=== PATIENT | male | born 1980 ===

== ENCOUNTER 2022-06-28 09:26 | Inpatient (IN) | payer MEDICARE, MEDICAID ==
[~2022-06-28] VITALS: Ht 182.9 cm; Wt 107.3 kg
[2022-06-28 10:52] LABS: BASOPHILS # (AUTO) 0.1 X10'3 (0-0.2); BASOPHILS % (AUTO) 0.5 % (0-1); EOSINOPHILS # (AUTO) 0.2 X10'3 (0-0.9); EOSINOPHILS % (AUTO) 1.6 % (0-6); HEMATOCRIT 36.8 % (42.0-52.0); LYMPHOCYTES # (AUTO) 1.2 X10'3 (1.1-4.8); LYMPHOCYTES % (AUTO) 9.5 % (21-51); MEAN CORPUSCULAR HEMOGLOBIN 29.7 PG (27.0-31.0); MEAN CORPUSCULAR HGB CONC 32.5 g/dL (33.0-36.5); MEAN CORPUSCULAR VOLUME 91.4 FL (78-98); MEAN PLATELET VOLUME 8.4 FL (7.4-10.4); MONOCYTES # (AUTO) 0.5 X10'3 (0-0.9); NEUTROPHILS # (AUTO) 10.4 X10'3 (1.8-7.7); NEUTROPHILS % (AUTO) 84.4 % (42-75); PLATELET COUNT 367 X10'3 (140-440); RED BLOOD COUNT 4.02 X10'6 (4.70-6.10); RED CELL DISTRIBUTION WIDTH 16.4 % (11.5-14.5); WHITE BLOOD COUNT 12.4 X10'3 (4.5-11.0)
[2022-06-28 11:00] LABS: ALANINE AMINOTRANSFERASE 21 U/L (12-78); ALBUMIN 3.9 G/DL (3.4-5.0); ALBUMIN/GLOBULIN RATIO 0.8 (1.1-1.5); ALKALINE PHOSPHATASE 130 IU/L (46-116); ANION GAP 13 (8-16); ASPARTATE AMINO TRANSFERASE 15 U/L (10-37); BILIRUBIN,TOTAL 0.5 MG/DL (0.1-1.0); BLOOD UREA NITROGEN 46 MG/DL (7-18); CALCIUM 9.3 MG/DL (8.5-10.1); CHLORIDE 99 MMOL/L (99-107); GLUCOSE 279 MG/DL (70-104); POTASSIUM 4.5 MMOL/L (3.5-5.1); SODIUM 139 MMOL/L (135-145); TOTAL CARBON DIOXIDE 27.4 MMOL/L (24-32); TOTAL PROTEIN 8.6 G/DL (6.4-8.2); eGFR 6 ML/MIN
[2022-06-28 11:13] LABS: BUN/CREATININE RATIO 4.8 (5.4-32.0); CREATININE 9.64 MG/DL (0.60-1.10)
[2022-06-28] MEDS ORDERED: iohexol 350MG/ML 100ml bottle IV ONE (11:15)
[2022-06-28] MEDS ORDERED: ondansetron/PF 4mg/2ml inj IV ONE (11:25)
[2022-06-28] MEDS ORDERED: morphine 4 MG/ML inj SYRINge IV ONE (11:25)
[2022-06-28] MEDS ORDERED: PERFLUTREN PROTEIN-A MICROSPHR (Optison) 0.22 MG/ML 3ML VIAL IV ONE (13:00)
--- NOTE | 2022-06-28 13:05 | NUR ---
DR AL AT BEDSIDE.
--- NOTE | 2022-06-28 13:24 | NUR ---
SPOKE TO [facility] THREAD REELER FOR ROOM ASSISGNMENT FOR THE PT NEEDS THE DIALYSIS , PER [facility] NO ROOM AVAILABLE YET ,MADE CHARGE NURSE DAVION AWARE AND ALSO DR AL. PER LET THE DIALYSIS NURSE KNOW.
[2022-06-28] MEDS ORDERED: magnesium 2GM in 50ml NS 50 ML IV PRN (13:25)
[2022-06-28] MEDS ORDERED: DEXTROSE 15 GM of carb/4 tabs (each vial/BOTTLE has 4 tablets) PO PRN ×2 (13:25)
[2022-06-28] MEDS ORDERED: glucagon, human recombinant 1mg kit SUBCUT PRN (13:25)
[2022-06-28] MEDS ORDERED: albuterol 2.5 MG/3 ML nebule NEB PRN (13:25)
[2022-06-28] MEDS ORDERED: dextrose 50%-water 50ml dispensing syringe IV PRN ×2 (13:25)
[2022-06-28] MEDS ORDERED: ipratropium/albuterol 3ml nebule NEB PRN (13:25)
[2022-06-28] MEDS ORDERED: potassium CL 10mEq/100ml bag 100 ML IV PRN (13:25)
[2022-06-28] MEDS ORDERED: ondansetron/PF 4mg/2ml inj IV PRN (13:25)
[2022-06-28] MEDS ORDERED: heparin 1,000unit/ml 10ml vial 10 ML IV ONE (13:25)
[2022-06-28] MEDS ORDERED: MESSAGE TO PHARMACY PO ONE (13:25)
[2022-06-28] MEDS ORDERED: magnesium 4gm in 100ml NS 100 ML IV PRN (13:25)
[2022-06-28] MEDS ORDERED: heparin 1,000 units/ml 10ml inj IV ONE (13:25)
[2022-06-28] MEDS ORDERED: POTASSIUM BICARB 20meq eff tab 20 MEQ TABLET.EFF PO PRN ×2 (13:25)
[2022-06-28] MEDS ORDERED: acetaminophen 325mg tablet PO PRN (13:25)
[2022-06-28] MEDS ORDERED: heparin 1,000 units/ml 10ml inj HE ONE ×2 (13:30→16:05)
--- NOTE | 2022-06-28 14:01 | NUR ---
RT AT BEDSIDE.
[2022-06-28 14:30] LABS: ABG BASE EXCESS 4.1 mmol/L (-2.0-2.0); ABG HCO3 25.5 mmol/L (22.0-26.0); ABG OXYGEN SATURATION 85.2 % (94-97); ABG PCO2 (T) 28.5 mmHg (35.0-48.0); ABG PO2 (T) 47.1 mmHg (75.0-100.0); ALLEN'S TEST POSITIVE; FCOHb 0.1 % (0.0-3.9); FLOW 6 L/min; FMetHb 0.1 % (0.0-1.5); PATIENT TEMPERATURE 36.7; TOTAL HEMOGLOBIN 12.9 G/dl (14.0-18.0)
[2022-06-28 14:35] LABS: HEMOGLOBIN A1C 9.4 % (4.5-6.2)
[2022-06-28 16:45] VITALS: BP 190/100
[2022-06-28 18:00] VITALS: BP 147/86
--- NOTE | 2022-06-28 18:30 | NUR ---
Problems reprioritized. Patient report given, questions answered & plan of care reviewed with ALEXANDRA Urias.
[2022-06-28] MEDS ORDERED: DILT-36 PO (19:59)
[2022-06-28] MEDS ORDERED: SEVE800T7 PO (19:59)
[2022-06-28] MEDS ORDERED: LEVO100T9 PO (19:59)
[2022-06-28] MEDS ORDERED: METO5TAB98 PO (19:59)
[2022-06-28] MEDS ORDERED: METO100T14 PO (19:59)
[2022-06-28] MEDS ORDERED: LISI40TA13 PO (19:59)
[2022-06-28] MEDS ORDERED: ROSU10TA28 PO (19:59)
[2022-06-28] MEDS ORDERED: HYDR100T27 PO (19:59)
[2022-06-28] MEDS ORDERED: SODI10PO PO (19:59)
[2022-06-28] MEDS ORDERED: APIX5TAB3 PO (19:59)
[2022-06-28] MEDS: K and/or MAG REPLACEMENT MC SCH (20:00)
[2022-06-28] MEDS: insulin glargine (Lantus) pen - multi-dose SQ SCH (21:00)
[2022-06-28 22:00] VITALS: BP 131/83
[2022-06-28] MEDS: docusate sod 100mg capsule PO SCH (22:28)
[2022-06-28] MEDS: heparin, porcine 5000 units/ml vial SQ SCH (22:28)
[2022-06-29] MEDS: methylPREDNISolone sod succ 125mg/2ml vial IV SCH ×3 (00:16→17:46)
[2022-06-29 02:00] VITALS: BP 128/85
[2022-06-29 07:00] VITALS: BP 135/91
[2022-06-29] MEDS: K and/or MAG REPLACEMENT MC SCH ×2 (08:00→20:00)
[2022-06-29 08:13] LABS: BASOPHILS % (AUTO) 0.1 % (0-1); EOSINOPHILS % (AUTO) 0 % (0-6); HEMATOCRIT 37.4 % (42.0-52.0); HEMOGLOBIN 12.4 g/dl (14.0-17.9); LYMPHOCYTES # (AUTO) 0.6 X10'3 (1.1-4.8); LYMPHOCYTES % (AUTO) 4.5 % (21-51); MEAN CORPUSCULAR HEMOGLOBIN 29.5 PG (27.0-31.0); MEAN CORPUSCULAR HGB CONC 33.1 g/dL (33.0-36.5); MEAN CORPUSCULAR VOLUME 89.3 FL (78-98); MEAN PLATELET VOLUME 8.8 FL (7.4-10.4); MONOCYTES # (AUTO) 0.1 X10'3 (0-0.9); MONOCYTES % (AUTO) 0.8 % (2-12); NEUTROPHILS # (AUTO) 12.5 X10'3 (1.8-7.7); NEUTROPHILS % (AUTO) 94.6 % (42-75); PLATELET COUNT 392 X10'3 (140-440); RED BLOOD COUNT 4.19 X10'6 (4.70-6.10); RED CELL DISTRIBUTION WIDTH 16.7 % (11.5-14.5); WHITE BLOOD COUNT 13.2 X10'3 (4.5-11.0)
[2022-06-29] MEDS: heparin, porcine 5000 units/ml vial SQ SCH (08:22)
[2022-06-29] MEDS: docusate sod 100mg capsule PO SCH ×2 (08:22→21:25)
[2022-06-29 08:37] LABS: ALANINE AMINOTRANSFERASE 21 U/L (12-78); ALBUMIN 3.8 G/DL (3.4-5.0); ALBUMIN/GLOBULIN RATIO 0.7 (1.1-1.5); ALKALINE PHOSPHATASE 135 IU/L (46-116); ANION GAP 14 (8-16); ASPARTATE AMINO TRANSFERASE 15 U/L (10-37); BILIRUBIN,TOTAL 0.7 MG/DL (0.1-1.0); BLOOD UREA NITROGEN 31 MG/DL (7-18); BUN/CREATININE RATIO 4.5 (5.4-32.0); CALCIUM 9.4 MG/DL (8.5-10.1); CHLORIDE 95 MMOL/L (99-107); CREATININE 6.95 MG/DL (0.60-1.10); MAGNESIUM 2.5 MG/DL (1.5-2.4); PHOSPHORUS 2.9 MG/DL (2.3-4.5); SODIUM 133 MMOL/L (135-145); TOTAL CARBON DIOXIDE 24.3 MMOL/L (24-32); TOTAL PROTEIN 8.9 G/DL (6.4-8.2); eGFR 9 ML/MIN
[2022-06-29 08:43] LABS: GLUCOSE 496 MG/DL (70-104); POTASSIUM 6.4 MMOL/L (3.5-5.1)
--- NOTE | 2022-06-29 08:55 | NUR ---
PT had critical labs. notified. "RM 3019: PT has critical labs. BG was 496 via lab; 486 via POCT. K+ was 6.4. Pt received HD over NOC; 5L out. Thanks Gabrielle. "
--- NOTE | 2022-06-29 09:37 | NUR ---
Diabetes consult: Pt w/ hx of DM A1c 9.4 per EMR. Pt declined verbal ed though accepted written DM ed w/ RD contact info. Addendum: 06/29/22 at [address] Amended: Links added.
[2022-06-29] MEDS ORDERED: pneumococcal 23-VAL P-sac vacc 25 mcg/0.5ml vial IMVAC ONE (10:00)
[2022-06-29] MEDS: insulin Lispro (HumaLOG) vial - multi-dose SQ SCH ×3 (11:55→21:53)
[2022-06-29] MEDS: SODIUM ZIRCONIUM CYCLOSILICATE 10 GM POWD.PACK PO SCH ×3 (11:56→21:26)
--- NOTE | 2022-06-29 13:15 | NUR ---
Messaged regarding critical BG POCT: 547 "RM 3019A: PT BG POCT 547, post initial treatment. Pt still aox4, awake alert and denies s/s. "
--- NOTE | 2022-06-29 14:33 | NUR ---
PAGER ID: [phone] MESSAGE: [email or web address] , EKG ON 3019 SHOWING ACUTE TN, C AN YOU COME LOOK AT EKG OR I CAN BRING TO YOU.
[2022-06-29] MEDS ORDERED: PERFLUTREN PROTEIN-A MICROSPHR (Optison) 0.22 MG/ML 3ML VIAL IV ONE (14:45)
[2022-06-29 14:52] LABS: ANION GAP 16 (8-16); BLOOD UREA NITROGEN 38 MG/DL (7-18); BUN/CREATININE RATIO 4.8 (5.4-32.0); CALCIUM 10.1 MG/DL (8.5-10.1); CHLORIDE 88 MMOL/L (99-107); CREATININE 7.95 MG/DL (0.60-1.10); POTASSIUM 5.4 MMOL/L (3.5-5.1); SODIUM 127 MMOL/L (135-145); TOTAL CARBON DIOXIDE 22.9 MMOL/L (24-32); eGFR 8 ML/MIN
[2022-06-29 14:54] LABS: GLUCOSE 546 MG/DL (70-104)
[2022-06-29] MEDS: sevelamer carbonate 800mg tablet PO SCH (17:45)
[2022-06-29 18:00] VITALS: BP 132/87
--- NOTE | 2022-06-29 19:57 | NUR ---
Pt aox4, vss on 8L HiFlo NC down from 10L. pt SL, on 1500mL fluid restriction with dry trays. Solumedrol for lung function with breath treatments. BG at critical levels 486am, 547noon, 318dinner. All treated per insulin protocol. Pt remains aox4, denies numnbess, tingling, lightheadedness. ECHO and EKG done for c/o ongoing chest pain/chest pressure while laying flat. Pt given IS and instruction on use for additional pulmonary function hygiene. Critical K level at 6.4 in am. New medications ordered by Dr. Mary; and K+ down to 5.4. continue powder drink for potassium levels and recheck in am. All needs met in real time. Pt on Fluid restriction of 1.5L up from 1L.
[2022-06-29] MEDS: atorvastatin 20mg tablet PO SCH (21:24)
[2022-06-29] MEDS: apixaban 5mg tablet PO SCH (21:25)
[2022-06-29] MEDS: metoprolol tartrate 50mg tablet PO SCH (21:26)
[2022-06-29] MEDS: insulin glargine (Lantus) pen - multi-dose SQ SCH (21:54)
[2022-06-29 22:00] VITALS: BP 127/79
[2022-06-30] MEDS: methylPREDNISolone sod succ 125mg/2ml vial IV SCH ×3 (01:27→23:18)
[2022-06-30 02:00] VITALS: BP 131/84
--- NOTE | 2022-06-30 04:25 | NUR ---
RT called RN to bedside, pt's O2 low 60's% and pt was refusing RT reapply nasal cannula. RT gave education, RN gave education. Pt reapplied nasal cannula. At 15L hi cheri wall O2 pt was satting max 85%. Pt refused high flow rate with more L's and wanted Liters lowered to 12. Pt placed on CHIN STRAP CUTTER and monitored. O2 back up to 90's after about 20 minutes. 15 minutes later CHIN STRAP CUTTER showing O2 at 75%, pt refused RN turning O2 up higher than 12L, saying it hurts. Oxy mask, and humidified canula offered, pt refused. Extensive education given about lack of perfusion with oxygen saturation below 90% and pt said, "you are all thinking too medically here, I let my oxygen stay at 70% at home, you cant make me wear more oxygen." Further education provided and pt was reminded of medical roles of staff in the hospital. RN also asked if pt had filled water cup from sink despite fluid restriction, pt unable to recall but "thinks this is water from before" Education about fluid restriction reinforced. Pt noncompliant with MD orders and protocols.
[2022-06-30 06:00] VITALS: BP 165/97
[2022-06-30 06:29] LABS: BASOPHILS % (AUTO) 0.1 % (0-1); EOSINOPHILS % (AUTO) 0 % (0-6); HEMATOCRIT 38.1 % (42.0-52.0); HEMOGLOBIN 12.5 g/dl (14.0-17.9); LYMPHOCYTES # (AUTO) 0.7 X10'3 (1.1-4.8); LYMPHOCYTES % (AUTO) 3.7 % (21-51); MEAN CORPUSCULAR HEMOGLOBIN 29.2 PG (27.0-31.0); MEAN CORPUSCULAR HGB CONC 32.8 g/dL (33.0-36.5); MEAN PLATELET VOLUME 8.5 FL (7.4-10.4); MONOCYTES # (AUTO) 0.2 X10'3 (0-0.9); MONOCYTES % (AUTO) 0.9 % (2-12); NEUTROPHILS # (AUTO) 19.2 X10'3 (1.8-7.7); NEUTROPHILS % (AUTO) 95.3 % (42-75); PLATELET COUNT 411 X10'3 (140-440); RED BLOOD COUNT 4.29 X10'6 (4.70-6.10); RED CELL DISTRIBUTION WIDTH 16.2 % (11.5-14.5); WHITE BLOOD COUNT 20.1 X10'3 (4.5-11.0)
[2022-06-30 06:39] LABS: ALANINE AMINOTRANSFERASE 17 U/L (12-78); ALBUMIN 3.7 G/DL (3.4-5.0); ALBUMIN/GLOBULIN RATIO 0.8 (1.1-1.5); ALKALINE PHOSPHATASE 122 IU/L (46-116); ANION GAP 14 (8-16); ASPARTATE AMINO TRANSFERASE 8 U/L (10-37); BILIRUBIN,TOTAL 0.6 MG/DL (0.1-1.0); BLOOD UREA NITROGEN 61 MG/DL (7-18); BUN/CREATININE RATIO 6.5 (5.4-32.0); CALCIUM 9.8 MG/DL (8.5-10.1); CHLORIDE 91 MMOL/L (99-107); CREATININE 9.39 MG/DL (0.60-1.10); GLUCOSE 418 MG/DL (70-104); MAGNESIUM 2.6 MG/DL (1.5-2.4); PHOSPHORUS 4.9 MG/DL (2.3-4.5); POTASSIUM 5.8 MMOL/L (3.5-5.1); SODIUM 132 MMOL/L (135-145); TOTAL CARBON DIOXIDE 26.8 MMOL/L (24-32); TOTAL PROTEIN 8.4 G/DL (6.4-8.2); eGFR 6 ML/MIN
[2022-06-30] MEDS: K and/or MAG REPLACEMENT MC SCH ×2 (08:00→20:49)
[2022-06-30] MEDS: insulin Lispro (HumaLOG) vial - multi-dose SQ SCH ×2 (10:37→14:35)
[2022-06-30] MEDS: sevelamer carbonate 800mg tablet PO SCH ×2 (10:40→17:30)
[2022-06-30] MEDS: docusate sod 100mg capsule PO SCH ×2 (10:40→20:41)
[2022-06-30] MEDS: metoprolol tartrate 50mg tablet PO SCH ×2 (10:41→20:00)
[2022-06-30] MEDS: atorvastatin 20mg tablet PO SCH ×2 (10:41→20:41)
[2022-06-30] MEDS: levoTHYROXINE 100mcg tablet PO SCH (10:41)
[2022-06-30] MEDS: SODIUM ZIRCONIUM CYCLOSILICATE 10 GM POWD.PACK PO SCH ×3 (10:42→20:44)
[2022-06-30] MEDS: CefTRIAXone/D5W-Rocephin 1gm 50 ML IV SCH (10:42)
[2022-06-30] MEDS: apixaban 5mg tablet PO SCH ×2 (10:42→20:41)
[2022-06-30] MEDS ORDERED: LIDOcaine 1% (10mg/ml) 2ml vial SQ ONE (11:15)
[2022-06-30] MEDS ORDERED: normal saline 1000ml 250 ML IV PRN (11:15)
[2022-06-30] MEDS ORDERED: EPOETIN ALFA-EPBX 20,000 UNIT/ML 1 ML MDV IV ONE (11:15)
[2022-06-30] MEDS ORDERED: heparin 1,000 units/ml 10ml inj IV ONE (11:15)
[2022-06-30] MEDS ORDERED: heparin 1,000unit/ml 10ml vial 10 ML IV ONE (11:40)
[2022-06-30] MEDS ORDERED: heparin 1,000 units/ml 10ml inj HE ONE ×2 (11:45)
[2022-06-30 13:00] VITALS: BP 147/91
[2022-06-30 18:00] VITALS: BP 99/69
[2022-06-30] MEDS: insulin glargine (Lantus) pen - multi-dose SQ SCH (20:40)
[2022-06-30 22:00] VITALS: BP 126/71
[2022-07-01 02:00] VITALS: BP 130/67
[2022-07-01 06:29] LABS: BASOPHILS % (AUTO) 0 % (0-1); EOSINOPHILS % (AUTO) 0 % (0-6); HEMATOCRIT 43.7 % (42.0-52.0); HEMOGLOBIN 14.3 g/dl (14.0-17.9); LYMPHOCYTES % (AUTO) 4.6 % (21-51); MEAN CORPUSCULAR HEMOGLOBIN 29.6 PG (27.0-31.0); MEAN CORPUSCULAR HGB CONC 32.6 g/dL (33.0-36.5); MEAN CORPUSCULAR VOLUME 90.9 FL (78-98); MEAN PLATELET VOLUME 8.7 FL (7.4-10.4); MONOCYTES # (AUTO) 0.3 X10'3 (0-0.9); MONOCYTES % (AUTO) 1.6 % (2-12); NEUTROPHILS # (AUTO) 19.9 X10'3 (1.8-7.7); NEUTROPHILS % (AUTO) 93.8 % (42-75); PLATELET COUNT 413 X10'3 (140-440); RED BLOOD COUNT 4.81 X10'6 (4.70-6.10); RED CELL DISTRIBUTION WIDTH 16.5 % (11.5-14.5); WHITE BLOOD COUNT 21.2 X10'3 (4.5-11.0)
[2022-07-01 06:45] LABS: ALANINE AMINOTRANSFERASE 13 U/L (12-78); ALBUMIN 4.1 G/DL (3.4-5.0); ALBUMIN/GLOBULIN RATIO 0.8 (1.1-1.5); ALKALINE PHOSPHATASE 133 IU/L (46-116); ANION GAP 15 (8-16); ASPARTATE AMINO TRANSFERASE 10 U/L (10-37); BILIRUBIN,TOTAL 0.5 MG/DL (0.1-1.0); BLOOD UREA NITROGEN 56 MG/DL (7-18); BUN/CREATININE RATIO 7.1 (5.4-32.0); CALCIUM 9.5 MG/DL (8.5-10.1); CHLORIDE 93 MMOL/L (99-107); CREATININE 7.85 MG/DL (0.60-1.10); GLUCOSE 367 MG/DL (70-104); MAGNESIUM 2.9 MG/DL (1.5-2.4); PHOSPHORUS 7.1 MG/DL (2.3-4.5); POTASSIUM 5.1 MMOL/L (3.5-5.1); SODIUM 131 MMOL/L (135-145); TOTAL PROTEIN 9.5 G/DL (6.4-8.2); eGFR 8 ML/MIN
[2022-07-01] MEDS: K and/or MAG REPLACEMENT MC SCH ×2 (08:00→20:20)
[2022-07-01] MEDS: insulin Lispro (HumaLOG) vial - multi-dose SQ SCH ×2 (10:03→14:00)
[2022-07-01] MEDS: apixaban 5mg tablet PO SCH (10:07)
[2022-07-01] MEDS: atorvastatin 20mg tablet PO SCH (10:07)
[2022-07-01] MEDS: docusate sod 100mg capsule PO SCH ×2 (10:07→20:20)
[2022-07-01] MEDS: levoTHYROXINE 100mcg tablet PO SCH (10:07)
[2022-07-01] MEDS: metoprolol tartrate 50mg tablet PO SCH ×2 (10:08→20:19)
[2022-07-01] MEDS: sevelamer carbonate 800mg tablet PO SCH ×2 (10:09→18:20)
[2022-07-01] MEDS: methylPREDNISolone sod succ 125mg/2ml vial IV SCH ×3 (10:52→23:04)
[2022-07-01] MEDS: CefTRIAXone/D5W-Rocephin 1gm 50 ML IV SCH (10:53)
[2022-07-01 12:00] VITALS: BP 151/105
[2022-07-01 15:53] LABS: HBSAG SCREEN Negative (Negative)
[2022-07-01] MEDS ORDERED: heparin 10,000 units/1 ML INJ IV ONE (17:55)
[2022-07-01] MEDS ORDERED: heparin 10,000 units/1 ML INJ IV PRN (17:55)
[2022-07-01] MEDS ORDERED: HEPARIN SOD,PORK IN 0.45% NACL 250 ML IV SCH (17:55)
[2022-07-01 18:00] VITALS: BP 149/95
--- NOTE | 2022-07-01 18:36 | NUR ---
Problems reprioritized. Patient report given, questions answered & plan of care reviewed with Adonay MORRIS, patient stable at transfer of care.
[2022-07-01] MEDS: insulin glargine (Lantus) pen - multi-dose SQ SCH (21:01)
[2022-07-01 22:00] VITALS: BP 155/93
[2022-07-02 02:00] VITALS: BP 145/90
[2022-07-02 06:00] VITALS: BP 119/71
--- NOTE | 2022-07-02 06:17 | NUR ---
Patient in room PCU 3019. I have received report from Adonay MORRIS and had the opportunity to ask questions and assume patient care.
[2022-07-02 07:43] LABS: BASOPHILS % (AUTO) 0.1 % (0-1); EOSINOPHILS % (AUTO) 0 % (0-6); HEMATOCRIT 41.8 % (42.0-52.0); HEMOGLOBIN 13.8 g/dl (14.0-17.9); LYMPHOCYTES # (AUTO) 0.9 X10'3 (1.1-4.8); LYMPHOCYTES % (AUTO) 4.4 % (21-51); MEAN CORPUSCULAR HEMOGLOBIN 29.4 PG (27.0-31.0); MEAN CORPUSCULAR VOLUME 89.1 FL (78-98); MEAN PLATELET VOLUME 8.8 FL (7.4-10.4); MONOCYTES # (AUTO) 0.3 X10'3 (0-0.9); MONOCYTES % (AUTO) 1.5 % (2-12); NEUTROPHILS # (AUTO) 19.4 X10'3 (1.8-7.7); PLATELET COUNT 441 X10'3 (140-440); RED CELL DISTRIBUTION WIDTH 16.5 % (11.5-14.5); WHITE BLOOD COUNT 20.7 X10'3 (4.5-11.0)
[2022-07-02] MEDS: metoprolol tartrate 50mg tablet PO SCH ×2 (07:57→19:45)
[2022-07-02] MEDS: levoTHYROXINE 100mcg tablet PO SCH (07:58)
[2022-07-02] MEDS: sevelamer carbonate 800mg tablet PO SCH ×2 (07:58→17:30)
[2022-07-02] MEDS ORDERED: heparin 1,000 units/ml 10ml inj HE ONE ×2 (08:00)
[2022-07-02] MEDS ORDERED: heparin 1,000unit/ml 10ml vial 10 ML IV ONE (08:00)
[2022-07-02] MEDS: docusate sod 100mg capsule PO SCH ×2 (08:00→19:45)
[2022-07-02] MEDS: K and/or MAG REPLACEMENT MC SCH ×2 (08:00→19:45)
[2022-07-02] MEDS ORDERED: normal saline 1000ml 250 ML IV PRN (08:00)
[2022-07-02] MEDS: methylPREDNISolone sod succ 125mg/2ml vial IV SCH ×2 (08:02→16:02)
[2022-07-02 08:17] LABS: ALANINE AMINOTRANSFERASE 12 U/L (12-78); ALBUMIN 3.7 G/DL (3.4-5.0); ALBUMIN/GLOBULIN RATIO 0.8 (1.1-1.5); ALKALINE PHOSPHATASE 122 IU/L (46-116); ANION GAP 27 (8-16); ASPARTATE AMINO TRANSFERASE 9 U/L (10-37); BILIRUBIN,TOTAL 0.5 MG/DL (0.1-1.0); BLOOD UREA NITROGEN 111 MG/DL (7-18); BUN/CREATININE RATIO 10.1 (5.4-32.0); CALCIUM 8.5 MG/DL (8.5-10.1); CHLORIDE 86 MMOL/L (99-107); MAGNESIUM 2.6 MG/DL (1.5-2.4); POTASSIUM 5.1 MMOL/L (3.5-5.1); SODIUM 128 MMOL/L (135-145); TOTAL CARBON DIOXIDE 15.4 MMOL/L (24-32); TOTAL PROTEIN 8.5 G/DL (6.4-8.2); eGFR 5 ML/MIN
[2022-07-02 08:20] LABS: GLUCOSE 457 MG/DL (70-104)
[2022-07-02 08:21] LABS: PHOSPHORUS 9.5 MG/DL (2.3-4.5)
--- NOTE | 2022-07-02 09:29 | NUR ---
Initial: Pt admitted w/ pulmonary HTN, acute respiratory failure, and ESRD on HD per EMR. Currently on Carb control/Renal diet w/ 800ml fluid restriction, eating mostly 100% of meals which meets approximately 90% of est energy needs and 100% of est protein needs. Pt continues on HD, last treatment 06/30 w/ 4.5L out per documentation. LBM 06/28 receiving routine bowel care. No nutrition intervention implemented at this time, will continue to monitor. Recs: 1. Continue Renal/Carb control diet w/ 800mL fluid restriction per MD 2. Routine bowel care 3. Scaled wts w/ HD Addendum: 07/02/22 at [address] Amended: Links added.
[2022-07-02] MEDS: insulin Lispro (HumaLOG) vial - multi-dose SQ SCH ×2 (10:03→14:43)
[2022-07-02 16:14] VITALS: BP 120/80
[2022-07-02 18:00] VITALS: BP 116/76
--- NOTE | 2022-07-02 18:51 | NUR ---
Problems reprioritized. Patient report given, questions answered & plan of care reviewed with Valerie MORRIS, patient stable at transfer of care.
[2022-07-02] MEDS: apixaban 5mg tablet PO SCH (19:44)
[2022-07-02] MEDS: insulin glargine (Lantus) pen - multi-dose SQ SCH (20:06)
[2022-07-02] MEDS: atorvastatin 20mg tablet PO SCH (20:08)
[2022-07-02 21:21] VITALS: BP 130/83
[2022-07-03] MEDS: methylPREDNISolone sod succ 125mg/2ml vial IV SCH ×3 (00:23→17:47)
[2022-07-03 01:42] VITALS: BP 145/91
--- NOTE | 2022-07-03 05:51 | NUR ---
Pt refusing AM lab draw despite RN education on importance of understanding lab values as it relates to pt plan of care. Will attempt to draw labs again in 1-2 hrs.
[2022-07-03 06:00] VITALS: BP 130/75
[2022-07-03] MEDS: K and/or MAG REPLACEMENT MC SCH ×2 (08:00→19:10)
[2022-07-03] MEDS: docusate sod 100mg capsule PO SCH ×2 (08:00→19:51)
[2022-07-03] MEDS: insulin Lispro (HumaLOG) vial - multi-dose SQ SCH ×3 (10:27→19:47)
[2022-07-03] MEDS: apixaban 5mg tablet PO SCH ×2 (10:29→19:50)
[2022-07-03] MEDS: atorvastatin 20mg tablet PO SCH (10:29)
[2022-07-03] MEDS: sevelamer carbonate 800mg tablet PO SCH ×2 (10:29→17:47)
[2022-07-03] MEDS: levoTHYROXINE 100mcg tablet PO SCH (10:30)
[2022-07-03] MEDS: metoprolol tartrate 50mg tablet PO SCH ×2 (10:31→19:50)
[2022-07-03 11:00] VITALS: BP 127/84
[2022-07-03 15:00] VITALS: BP 128/88
[2022-07-03 15:51] LABS: BASOPHILS % (AUTO) 0 % (0-1); EOSINOPHILS % (AUTO) 0 % (0-6); HEMATOCRIT 48.2 % (42.0-52.0); HEMOGLOBIN 15.9 g/dl (14.0-17.9); LYMPHOCYTES % (AUTO) 4.3 % (21-51); MEAN CORPUSCULAR HEMOGLOBIN 29.5 PG (27.0-31.0); MEAN CORPUSCULAR HGB CONC 33.1 g/dL (33.0-36.5); MEAN PLATELET VOLUME 8.8 FL (7.4-10.4); MONOCYTES # (AUTO) 1.1 X10'3 (0-0.9); MONOCYTES % (AUTO) 4.5 % (2-12); NEUTROPHILS # (AUTO) 22.1 X10'3 (1.8-7.7); NEUTROPHILS % (AUTO) 91.2 % (42-75); PLATELET COUNT 507 X10'3 (140-440); RED BLOOD COUNT 5.41 X10'6 (4.70-6.10); RED CELL DISTRIBUTION WIDTH 16.4 % (11.5-14.5); WHITE BLOOD COUNT 24.3 X10'3 (4.5-11.0)
[2022-07-03 16:01] LABS: ALANINE AMINOTRANSFERASE 16 U/L (12-78); ALBUMIN/GLOBULIN RATIO 0.8 (1.1-1.5); ALKALINE PHOSPHATASE 123 IU/L (46-116); ANION GAP 24 (8-16); ASPARTATE AMINO TRANSFERASE 7 U/L (10-37); BILIRUBIN,TOTAL 0.6 MG/DL (0.1-1.0); BLOOD UREA NITROGEN 104 MG/DL (7-18); BUN/CREATININE RATIO 10.3 (5.4-32.0); CALCIUM 9.1 MG/DL (8.5-10.1); CHLORIDE 89 MMOL/L (99-107); CREATININE 10.05 MG/DL (0.60-1.10); GLUCOSE 172 MG/DL (70-104); POTASSIUM 4.8 MMOL/L (3.5-5.1); SODIUM 133 MMOL/L (135-145); TOTAL CARBON DIOXIDE 20.1 MMOL/L (24-32); TOTAL PROTEIN 9.2 G/DL (6.4-8.2); eGFR 6 ML/MIN
[2022-07-03 16:03] LABS: PHOSPHORUS 9.3 MG/DL (2.3-4.5)
[2022-07-03 18:00] VITALS: BP 123/79
--- NOTE | 2022-07-03 18:32 | NUR ---
Problems reprioritized. Patient report given, questions answered & plan of care reviewed with Prudence RN, patient stable at transfer of care.
--- NOTE | 2022-07-03 19:00 | NUR ---
Patient in room PCU 3019. I have received report from DANIEL MORRIS and had the opportunity to ask questions and assume patient care.
[2022-07-03] MEDS: insulin glargine (Lantus) pen - multi-dose SQ SCH (21:52)
[2022-07-03 22:00] VITALS: BP 115/67
[2022-07-03] MEDS ORDERED: HYDROcodone/acetaminophen 10/325mg tab PO ONE (22:35)
[2022-07-04] MEDS: methylPREDNISolone sod succ 125mg/2ml vial IV SCH ×3 (00:43→16:24)
[2022-07-04 02:50] VITALS: BP 138/76
[2022-07-04 06:00] VITALS: BP 152/83
--- NOTE | 2022-07-04 06:33 | NUR ---
Problems reprioritized. Patient report given, questions answered & plan of care reviewed with LION MORRIS.
[2022-07-04] MEDS ORDERED: normal saline 1000ml 250 ML IV PRN (07:10)
[2022-07-04] MEDS ORDERED: heparin 1,000unit/ml 10ml vial 10 ML IV ONE (07:10)
[2022-07-04] MEDS ORDERED: heparin 1,000 units/ml 10ml inj HE ONE ×2 (07:15)
[2022-07-04] MEDS: docusate sod 100mg capsule PO SCH ×2 (08:00→19:53)
[2022-07-04] MEDS: K and/or MAG REPLACEMENT MC SCH ×2 (08:00→20:11)
[2022-07-04] MEDS: apixaban 5mg tablet PO SCH ×2 (08:19→19:52)
[2022-07-04] MEDS: levoTHYROXINE 100mcg tablet PO SCH (08:19)
[2022-07-04] MEDS: metoprolol tartrate 50mg tablet PO SCH ×2 (08:20→19:53)
[2022-07-04] MEDS: sevelamer carbonate 800mg tablet PO SCH ×2 (08:21→17:59)
[2022-07-04] MEDS: insulin Lispro (HumaLOG) vial - multi-dose SQ SCH ×2 (10:42→19:50)
[2022-07-04] MEDS ORDERED: HYDROcodone/acetaminophen 5mg/325mg tablet PO ONE (12:16)
[2022-07-04 14:15] VITALS: BP 129/76
[2022-07-04 14:26] LABS: BASOPHILS % (AUTO) 0.2 % (0-1); EOSINOPHILS % (AUTO) 0 % (0-6); HEMATOCRIT 49.4 % (42.0-52.0); HEMOGLOBIN 16.7 g/dl (14.0-17.9); LYMPHOCYTES # (AUTO) 0.9 X10'3 (1.1-4.8); LYMPHOCYTES % (AUTO) 3.9 % (21-51); MEAN CORPUSCULAR HEMOGLOBIN 29.6 PG (27.0-31.0); MEAN CORPUSCULAR HGB CONC 33.9 g/dL (33.0-36.5); MEAN CORPUSCULAR VOLUME 87.6 FL (78-98); MEAN PLATELET VOLUME 8.8 FL (7.4-10.4); MONOCYTES # (AUTO) 0.4 X10'3 (0-0.9); MONOCYTES % (AUTO) 1.8 % (2-12); NEUTROPHILS # (AUTO) 22.3 X10'3 (1.8-7.7); NEUTROPHILS % (AUTO) 94.1 % (42-75); PLATELET COUNT 476 X10'3 (140-440); RED BLOOD COUNT 5.64 X10'6 (4.70-6.10); RED CELL DISTRIBUTION WIDTH 16.7 % (11.5-14.5); WHITE BLOOD COUNT 23.7 X10'3 (4.5-11.0)
[2022-07-04 14:39] LABS: ALANINE AMINOTRANSFERASE 19 U/L (12-78); ALBUMIN 4.1 G/DL (3.4-5.0); ALBUMIN/GLOBULIN RATIO 0.7 (1.1-1.5); ALKALINE PHOSPHATASE 126 IU/L (46-116); ANION GAP 16 (8-16); ASPARTATE AMINO TRANSFERASE 12 U/L (10-37); BILIRUBIN,TOTAL 0.7 MG/DL (0.1-1.0); CALCIUM 9.5 MG/DL (8.5-10.1); CHLORIDE 93 MMOL/L (99-107); GLUCOSE 140 MG/DL (70-104); POTASSIUM 3.8 MMOL/L (3.5-5.1); SODIUM 134 MMOL/L (135-145); TOTAL CARBON DIOXIDE 25.2 MMOL/L (24-32); TOTAL PROTEIN 9.6 G/DL (6.4-8.2); eGFR 14 ML/MIN
[2022-07-04 14:59] LABS: BLOOD UREA NITROGEN 45 MG/DL (7-18); BUN/CREATININE RATIO 9.5 (5.4-32.0); CREATININE 4.76 MG/DL (0.60-1.10)
[2022-07-04] MEDS ORDERED: levoFLOXACIN-Levaquin 250mg/D5 50 ML IV SCH ×2 (15:05→15:06)
[2022-07-04 18:00] VITALS: BP 152/68
--- NOTE | 2022-07-04 18:29 | NUR ---
Rec'd call from the transfer center. Bed assignment has been accepted. Pt going to [facility] at [address] [facility]. #[id number]. Report # [phone]. Admitting Dr: Dr Duffy. Notified CRSuzie
--- NOTE | 2022-07-04 18:57 | NUR ---
Patient in room PCU 3019. I have received report from CARLA MORRIS and had the opportunity to ask questions and assume patient care.
[2022-07-04] MEDS: atorvastatin 20mg tablet PO SCH (20:09)
[2022-07-04] MEDS: insulin glargine (Lantus) pen - multi-dose SQ SCH (21:59)
[2022-07-04 22:00] VITALS: BP 103/70
--- NOTE | 2022-07-04 23:30 | NUR ---
REPORT GIVEN TO AMOS MORRIS (CHARGE) ON ICU AT [facility] IN [place]. PATIENT TRANSPORTED VIA HELICOPTER. VITAL SIGNS STABLE ON DISCHARGE (T 98.1, BP 103/70, HR 69, RR 16, O2 94% ON 15L VIA VENTURI MASK) AND ON SIMPLE MASK 8L WHEN DEPARTING.
== END 2022-07-04 23:30 | disposition short-term general hospital (02) | DRG 189 ==
LOC: ER 09:26 → ED HOLD 13:34 → PCU 3S 16:17
PROVIDERS: ADMIT Family Medicine; ATTEND Family Medicine
PROC: 5A0935A Assistance with Respiratory Ventilation, Less than 24 Consecutive Hours, High Flow/Velocity Cannula (ICD-10-PCS; principal; 2022-06-28)
PROC: B32T1ZZ Computerized Tomography (CT Scan) of Left Pulmonary Artery using Low Osmolar Contrast (ICD-10-PCS; 2022-06-28)
PROC: B3201ZZ Computerized Tomography (CT Scan) of Thoracic Aorta using Low Osmolar Contrast (ICD-10-PCS; 2022-06-28)
PROC: B32S1ZZ Computerized Tomography (CT Scan) of Right Pulmonary Artery using Low Osmolar Contrast (ICD-10-PCS; 2022-06-28)
PROC: 5A1D70Z Performance of Urinary Filtration, Intermittent, Less than 6 Hours Per Day (ICD-10-PCS; 2022-06-28)
PROC: 5A0935A Assistance with Respiratory Ventilation, Less than 24 Consecutive Hours, High Flow/Velocity Cannula (ICD-10-PCS; 2022-06-29)
PROC: 5A0935A Assistance with Respiratory Ventilation, Less than 24 Consecutive Hours, High Flow/Velocity Cannula (ICD-10-PCS; 2022-06-30)
PROC: 5A1D70Z Performance of Urinary Filtration, Intermittent, Less than 6 Hours Per Day (ICD-10-PCS; 2022-06-30)
PROC: 5A0935A Assistance with Respiratory Ventilation, Less than 24 Consecutive Hours, High Flow/Velocity Cannula (ICD-10-PCS; 2022-07-01)
PROC: 5A1D70Z Performance of Urinary Filtration, Intermittent, Less than 6 Hours Per Day (ICD-10-PCS; 2022-07-02)
PROC: 5A1D70Z Performance of Urinary Filtration, Intermittent, Less than 6 Hours Per Day (ICD-10-PCS; 2022-07-04)
DX: J96.21 Acute and chronic respiratory failure with hypoxia (principal); N18.6 End stage renal disease; J44.1 Chronic obstructive pulmonary disease with (acute) exacerbation; I12.0 Hypertensive chronic kidney disease with stage 5 chronic kidney disease or end stage renal disease; E87.1 Hypo-osmolality and hyponatremia; I27.20 Pulmonary hypertension, unspecified; Z20.822 Contact with and (suspected) exposure to COVID-19; E03.9 Hypothyroidism, unspecified; R34 Anuria and oliguria; E11.22 Type 2 diabetes mellitus with diabetic chronic kidney disease; E78.5 Hyperlipidemia, unspecified; I48.91 Unspecified atrial fibrillation; Z79.899 Other long term (current) drug therapy; Z86.711 Personal history of pulmonary embolism; Z87.891 Personal history of nicotine dependence; Z99.2 Dependence on renal dialysis; Z99.81 Dependence on supplemental oxygen; Z79.84 Long term (current) use of oral hypoglycemic drugs; Z79.01 Long term (current) use of anticoagulants
CPT/HCPCS: 36415; 36600; 71045; 71275; 80048; 80053; 82803; 82948; 83036; 83735; 83880; 84100; 84443; 84484; 85018; 85025; 85730; 87340; 87811; 90732; 93005; 93306; 94640; 94760; 96374; 96375; 99285; A4620; A6402; G0257; G0378; J0696; J1644; J1815; J2270; J2405; J2930; J3490; J7030; J7040; J8597; Q9967